=== PATIENT | female | born 1955 | race African-American/Black ===

== ENCOUNTER 2022-05-12 15:11 | Emergency (ER) | payer BC, MEDICAID ==
[~2022-05-12] VITALS: Ht 165.1 cm; Wt 73.0 kg
[2022-05-12 15:19] VITALS: BP 192/127
[2022-05-12] MEDS ORDERED: ACETAMINOPHEN 325MG TABLET PO ONE (17:00)
[2022-05-12] MEDS ORDERED: IBUPROFEN 400MG TABLET PO ONE (17:00)
[2022-05-12 18:47] LABS: BASOPHILS % 0.5 % (0.0-2.0); EOSINOPHILS % 0.4 % (0.0-5.0); HEMATOCRIT. 45.9 % (36.0-48.0); HEMOGLOBIN. 15.3 g/dL (12.0-16.0); LYMPHOCYTES % 22.8 % (20.0-50.0); MEAN CORPUSCULAR HEMOGLOBIN 30.2 pg (28.0-32.0); MEAN CORPUSCULAR VOLUME 90.5 fL (81.0-99.0); MEAN PLATELET VOLUME 9.6 fl (7.4-10.4); MONOCYTES % 11.4 % (2.0-8.0); NEUTROPHILS % 64.9 % (40.0-76.0); PLATELET 272 x1000/uL (130-400); RED BLOOD CELL COUNT 5.08 mill/uL (4.2-5.4); RED CELL DISTRIBUTION WIDTH 14.6 % (11.6-14.6)
[2022-05-12 19:01] LABS: CHLORIDE 103 mEq/L (98-107)
[2022-05-12] MEDS ORDERED: METHOCARBAMOL 500MG TABLET PO ONE (20:00)
== END 2022-05-12 20:17 | disposition left against medical advice (07) ==
LOC: ER 15:11
DX: R10.31 Right lower quadrant pain (principal); E11.9 Type 2 diabetes mellitus without complications; I10 Essential (primary) hypertension; Z86.73 Personal history of transient ischemic attack (TIA), and cerebral infarction without residual deficits
CPT/HCPCS: 36415; 80053; 85025; 99283